=== PATIENT | male | born 1980 | race Caucasian/White ===

== ENCOUNTER 2019-05-25 18:40 | Emergency (ER) | payer BC ==
--- NOTE | 2019-05-25 18:56 | EDM.PDOC ---
ED HPI GENERAL MEDICAL PROBLEM - General Chief Complaint: General Stated Complaint: WAS SLEDDING AND HIT HEAD Time Seen by Provider: 05/25/19 18:40 Source of Information: Reports: Patient, Family History Limitations: Reports: No Limitations - History of Present Illness INITIAL COMMENTS - FREE TEXT/NARRATIVE: Tubing at [facility]. Lying supine onto going downhill caught up to his son who was in the same position. Son had reached the end of the berm stopped and was coming backwards when Alexis slid into the his boot with the left side of his face. His loss of consciousness. Swelling hematoma to the left zygomatic arch performed almost immediately with a taste of blood in the back of the nose. Clearing throat coughed twice blood-tinged clot that is not occurred since then. No shortness of breath or other affected areas. Pain to the zygomatic arch and the left cheek denying any neck pain chest pain or other contributing factors. Onset: Today, Sudden Duration: Minutes:, Constant Location: Reports: Face Quality: Reports: Ache, Burning Severity: Moderate Improves with: Reports: Cold Therapy Associated Symptoms: Reports: No Other Symptoms Treatments QUALITY AND RELIABILITY ENGINEER: Reports: Acetaminophen Left Face/Facial Pain Score (Numeric/FACES): 5 - Related Data Allergies Allergy/AdvReac Type Severity Reaction Status Date / Time No Known Drug Allergies Allergy Other Verified 05/25/19 18:42 Home Meds: Home Meds . [No Known Home Meds] 02/16/18 [History] Past Medical History Cardiovascular History: Reports: High Cholesterol - Past Surgical History Cardiovascular Surgical History: Reports: None Social & Family History - Family History Family Medical History: Noncontributory - Caffeine Use Caffeine Use: Reports: Coffee, Soda ED ROS GENERAL - Review of Systems Review Of Systems: See Below Constitutional: Reports: No Symptoms HEENT: Reports: No Symptoms Respiratory: Reports: No Symptoms Cardiovascular: Reports: No Symptoms Endocrine: Reports: No Symptoms GI/Abdominal: Reports: No Symptoms : Reports: No Symptoms Musculoskeletal: Reports: No Symptoms Skin: Reports: No Symptoms Neurological: Reports: No Symptoms Psychiatric: Reports: No Symptoms Hematologic/Lymphatic: Reports: No Symptoms Immunologic: Reports: No Symptoms ED EXAM, GENERAL - Physical Exam Exam: See Below Free Text/Narrative:: Oriented x3 in no acute distress. HEENT shows hematoma, black eye left zygomatic arch. No active bleeding is noted. Abrasion to the left scientology left cheek. No active bleeding no drainage. Tympanic membranes are intact bilateral negative for hemotympanum. PERRLA no icterus no injection no subconjunctival hematoma. EOM intact. Able to clench jaws closed with no difficulty. There is no crepitus to the jaw nor teeth. Oral mucosa is pink and moist, Neck is soft supple no lymphadenopathy. Tenderness is noted. Thorax is clear no wheezes no crackles. Cardiac S1 S2 Abdomen is soft, able to move all extremities with no discomfort. General Appearance: Alert, WD/WN Course - Vital Signs Last Recorded V/S: Last Vital Signs Temp 36.3 C 05/25/19 18:42 Pulse 63 05/25/19 18:42 Resp 16 05/25/19 18:42 BP 156/98 H 05/25/19 18:42 Pulse Ox 97 05/25/19 18:42 Departure - Departure Time of Disposition: 19:01 Disposition: Home, Self-Care 01 Condition: Good Clinical Impression: Black eye of left side, Contusion of face, Facial abrasion - Discharge Information *PRESCRIPTION DRUG MONITORING PROGRAM REVIEWED*: Not Applicable *COPY OF PRESCRIPTION DRUG MONITORING REPORT IN PATIENT MILY: Not Applicable Instructions: Eye Contusion, [id number], Facial or Scalp Contusion, Easy-to- Read Referrals: Melanie Olmstead MD [Primary Care Provider] - Forms: ED Department Discharge Additional Instructions: Keep ice to the affected area for the next 6 to 10 hours. Ibuprofen as needed for pain discomfort. Follow-up if not improving as needed. Should be seen immediately if you start to notice visual changes/loss of vision to the left eye. Avoid screen time and eyestrain for the next 24 hours. Recheck with optometry/ophthalmology if specific vision concerns arise. Sepsis Event Note - Evaluation Sepsis Screening Result: No Definite Risk - Focused Exam Vital Signs: Vital Signs Temp Pulse Resp BP Pulse Ox 05/25/19 18:42 36.3 C 63 16 156/98 H 97 Date Exam was Performed: 05/25/19 Time Exam was Performed: 19:01 - Problem List & Annotations (1) Contusion of face SNOMED Code(s): 808790857 Code(s): S00.83XA - CONTUSION OF OTHER PART OF HEAD, INITIAL ENCOUNTER Status: Acute Priority: High Current Visit: Yes Qualifiers: Encounter type: initial encounter Qualified Code(s): S00.83XA - Contusion of other part of head, initial encounter (2) Facial abrasion SNOMED Code(s): 840743113 Code(s): S00.81XA - ABRASION OF OTHER PART OF HEAD, INITIAL ENCOUNTER Status: Acute Priority: High Current Visit: Yes Qualifiers: Encounter type: initial encounter Qualified Code(s): S00.81XA - Abrasion of other part of head, initial encounter (3) Black eye of left side SNOMED Code(s): 245581749, 738797268 Code(s): S00.12XA - CONTUSION OF LEFT EYELID AND PERIOCULAR AREA, INIT ENCNTR Status: Acute Priority: High Current Visit: Yes Qualifiers: Encounter type: initial encounter Qualified Code(s): S00.12XA - Contusion of left eyelid and periocular area, initial encounter (4) Accidents occurring in place for recreation and sport SNOMED Code(s): 740037067 Code(s): Y92.838 - OT RECREATION AREA PLACE; Y92.39 - OTH SPORTS AND ATHLETIC AREA PLACE Status: Acute Priority: High Current Visit: Yes - Problem List Review Problem List Initiated/Reviewed/Updated: Yes - Assessment/Plan Plan: Keep ice to the affected area for the next 6 to 10 hours. Ibuprofen or Tylenol as needed for pain discomfort. Follow-up if not improving as needed. Should be seen immediately if you start to notice visual changes/loss of vision to the left eye. Avoid screen time and eyestrain for the next 24 hours. Recheck with optometry/ophthalmology if specific vision concerns arise.
== END 2019-05-25 19:15 | disposition home or self-care (01) ==
LOC: KA.ED 18:40
CPT/HCPCS: 99283